=== PATIENT | female | born 1990 | race American Indian/Alaskan Native ===

== ENCOUNTER 2018-10-22 10:34 | Emergency (ER) | payer SELFPAY ==
[2018-10-22 10:42] VITALS: TEMP 98.1
--- NOTE | 2018-10-22 11:11 | C.PDOC ---
History Of Present Illness 28 y/o female A2 presents to the ER c/o right sided back pain that now radiates to the abdomen for 4 days. Pt reports that in the beginning only her back was hurting, but now her abdomen is hurting too which prompted her to visit the ER. She states that walking exacerbates the pain, rating the pain a 7/10. Pt denies dysuria, nausea, vomiting and vaginal discharge. Time Seen by Provider: 10/22/18 10:42 Chief Complaint (Nursing): Back Pain History Per: Patient History/Exam Limitations: no limitations Onset/Duration Of Symptoms: Days (x4) Current Symptoms Are (Timing): Still Present Quality Of Discomfort: "Pain" Past Medical History Reviewed: Historical Data, Nursing Documentation, Vital Signs Vital Signs: Last Vital Signs Temp 98.1 F 10/22/18 10:39 Pulse 72 10/22/18 10:39 Resp 18 10/22/18 10:39 BP 111/70 10/22/18 10:39 Pulse Ox 100 10/22/18 10:39 - Medical History PMH: Kidney Stones (left side), Chronic Kidney Disease Family History: States: No Known Family Hx - Social History Hx Alcohol Use: No Hx Substance Use: No - Immunization History Hx Tetanus Toxoid Vaccination: Yes Hx Influenza Vaccination: Yes Hx Pneumococcal Vaccination: Yes Review Of Systems Constitutional: Negative for: Fever, Chills Cardiovascular: Negative for: Chest Pain Respiratory: Negative for: Shortness of Breath Gastrointestinal: Positive for: Abdominal Pain (right side; radiating from back pain ). Negative for: Nausea, Vomiting Genitourinary: Negative for: Dysuria, Vaginal Discharge Musculoskeletal: Positive for: Back Pain (right side ) Skin: Negative for: Rash Neurological: Negative for: Headache, Dizziness Physical Exam - Physical Exam Appears: Non-toxic, No Acute Distress Skin: Warm, Dry Head: Atraumatic, Normacephalic Eye(s): bilateral: Normal Inspection Ear(s): Bilateral: Normal Nose: Normal Oral Mucosa: Moist Tongue: Normal Appearing Neck: Normal ROM, Supple Chest: Symmetrical Cardiovascular: Rhythm Regular Respiratory: Normal Breath Sounds, No Accessory Muscle Use Gastrointestinal/Abdominal: Soft, Tenderness (Right suprapubic ), No Distention, No Guarding, No Rebound Back: No CVA Tenderness, No Vertebral Tenderness, Paraspinal Tenderness Extremity: Normal ROM (x4) Extremity: Bilateral: Atraumatic Neurological/Psych: Oriented x3, Normal Speech, Normal Cognition, Normal Motor, Normal Sensation ED Course And Treatment - Laboratory Results Result Diagrams: 10/22/18 11:41 10/22/18 11:41 O2 Sat by Pulse Oximetry: 100 (RA) Pulse Ox Interpretation: Normal - CT Scan/US abdomen Other Rad Studies (CT/US): Read By Radiologist, Radiology Report Reviewed CT/US Interpretation: Accession No. : [id number]. Patient Name / ID : ALEXANDRIA CHRISTIE / [id number]. Exam Date : 10/22/2018 12:58:23 ( Approved ). Study Comment : Sex / Age : F / 28Y. Creator : Rah Berry MD. Dictator : Rah Berry MD. Boat Tender : Petroleum Inspector Supervisor : Rah Berry MD. Approver2 : Report Date : 10/22/2018 14:14:10. My Comment : . Right upper quadrant abdominal ultrasound. HISTORY: Right upper quadrant abdominal pain. COMPARISON: None available. Technique: Real-time sonography was performed through the right upper quadrant of the abdomen. Findings: Liver: 14.7 centimeters in length. Normal echogenicity. Gallbladder: No calculi or sludge. Normal wall thickness of 1.8 millimeters. Negative sonographic Johnson's sign. Common bile duct measures 3.7 millimeters. Pancreas: Visualized portions preserved. Limited visualization of the pancreatic tail. Visualized aorta and IVC are grossly preserved. Right kidney: 12.2 x 4.4 x 4.7 centimeters. No calculi or hydronephrosis. Mild fullness of the right renal collecting system. Left Kidney: 10.9 x 5.9 x 5.3 centimeters. No calculi or hydronephrosis. Mild fullness of the left renal collecting system. Impression: Unremarkable sonographic evaluation of the right upper xiomara drant of the abdomen. pelvis Other Rad Studies (CT/US): Read By Radiologist, Radiology Report Reviewed CT/US Interpretation: Accession No. : [id number]. Patient Name / ID : ALEXANDRIA CHRISTIE / [id number]. Exam Date : 10/22/2018 12:33:02 ( Approved ). Study Comment : Sex / Age : F / 28Y. Creator : Rah Berry MD. Dictator : Rah Berry MD. Boat Tender : Petroleum Inspector Supervisor : Rah Berry MD. Approver2 : Report Date : 10/22/2018 14:09:22. My Comment : . Pelvic ultrasound. HISTORY: . Suprapubic pain. COMPARISON: None available. Technique: Real-time sonography was performed through the pelvis utilizing transabdominal and transvaginal techniques. Findings: Uterus: 11.3 x 4.7 x 6.7 centimeters. Heterogeneous echotexture. Anteverted. Cervix measures 3.3 centimeters. Intrauterine gestational sac measuring 1.29 centimeters corresponding to a gestational age of 5 weeks and 3 days. Yolk sac measures 2.7 millimeters. [place]-rump length measures 2.2 millimeters corresponding to a gestational age of 5 weeks and 5 days. heart rate of 103 beats per minute. No free fluid in the pelvic cul-de-sac. Right ovary: 3.6 x 3.2 x 4.0 centimeters. Normal flow. Heterogeneous cyst possibly corpus luteal cyst measuring 2.5 x 1.9 x 2.5 centimeters. Left ovary: 2.4 x 2.0 x 3.6 centimeters. Normal flow. Prominent blood vessels noted within the region of the bilateral adnexa. Impression: Intrauterine co rresponding to a gestational age of 5 weeks and 5 days by crown-rump length of 2.2 millimeters. heart rate of 103 beats per minute. Suggestion of a right ovarian corpus luteal cyst measuring 2.5 centimeters. Limited 1st trimester ultrasound for viability purposes only. Continued interval followup with serial ultrasound, serial HCG levels, and gynecological consultation would be helpful if clinically indicated. Medical Decision Making Medical Decision Making: plans: -- Labs- Anemic- patient states that she is on iron --UA- positive for UA -- US Abdomen:Unremarkable sonographic evaluation of the right upper quadrant of the abdomen. -- US pelvis: Intrauterine corresponding to a gestational age of 5 weeks and 5 days by crown-rump length of 2.2 millimeters. heart rate of 103 beats per minute. Suggestion of a right ovarian corpus luteal cyst measuring 2.5 centimeters. Limited 1st trimester ultrasound for viability purposes only. Continued interval followup with serial ultrasound, serial HCG levels, and gynecological c onsultation would be helpful if clinically indicated. D/w patient results and will treat with Macrobid patient advised to continue Macrobid twice a day for 5 days Rest and hydration Tylenol as needed for pain Follow up with PMD in 1-2 days Patient verbalizes understanding and is in agreement with plan. Patient is stable for discharge. Disposition Counseled Patient/Family Regarding: Studies Performed, Diagnosis, Need For Followup, Rx Given - Disposition Referrals: Murali Keller MD [Medical Doctor] - Disposition: HOME/ ROUTINE Disposition Time: 14:20 Condition: STABLE Additional Instructions: Continue antibiotics twice a day for 5 days Rest and hydration Tylenol as needed for pain Follow up with PMD in 1-2 days Return to the ED if symptoms worsen Prescriptions: Nitrofurantoin Macrocrystals [Macrobid] 100 mg PO BID #9 cap Instructions: Urinary Tract Infection, Adult (DC) Forms: [employer] (Maori) - Clinical Impression Clinical Impression: Low back pain, UTI (urinary tract infection) - PA / PARAFFINER / Resident Statement / has reviewed & agrees with the documentation as recorded. - Scribe Statement The provider has reviewed the documentation as recorded by the Anabel Del Toro Do All medical record entries made by the Scribe were at my direction and personally dictated by me. I have reviewed the chart and agree that the record accurately reflects my personal performance of the history, physical exam, medical decision making, and the department course for this patient. I have also personally directed, reviewed, and agree with the discharge instructions and disposition.
[2018-10-22 11:27] LABS: SQUAMOUS EPITHIAL 9 /hpf (0-5); URINE BACTERIA RARE (<OCC); URINE BILIRUBIN NEGATIVE (NEGATIVE); URINE CLARITY Hazy (Clear); URINE COLOR Yellow (YELLOW); URINE GLUCOSE (UA) NORMAL (Normal); URINE PROTEIN NEGATIVE (NEGATIVE); URINE UROBILINOGEN NORMAL mg/dL (0.2-1.0)
[2018-10-22 11:36] LABS: URINE BLOOD 2+ (NEGATIVE); URINE LEUKOCYTE ESTERASE 1+ Leu/uL (Negative)
[2018-10-22 11:46] LABS: BASO % 0.6 % (0.0-2.0); EOS % 1.2 % (0.0-4.0); HEMOGLOBIN 9.1 g/dL (11.0-16.0); LYMPH # 1.8 K/uL (1.0-4.3); LYMPH % 52.7 % (20.0-40.0); MEAN CELL VOLUME 77.4 fL (81.0-99.0); MEAN CORPUSCULAR HEMOGLOBIN 24.8 pg (27.0-31.0); MEAN CORPUSCULAR HGB CONC 32.1 g/dL (33.0-37.0); MEAN PLATELET VOLUME 8.3 fL (7.2-11.7); MONO # 0.3 K/uL (0.0-0.8); MONO % 8.9 % (0.0-10.0); NEUT # 1.3 K/uL (1.8-7.0); NEUT % 36.6 % (50.0-75.0); RBC 3.66 Mil/uL (3.80-5.20); RED CELL DISTRIBUTION WIDTH 20.7 % (11.5-14.5); WHITE BLOOD COUNT 3.5 K/uL (4.8-10.8)
[2018-10-22 11:59] LABS: ALB/GLOB RATIO 1.3 (1.0-2.1); ALT/SGPT 46 U/L (9-52); AST/SGOT 47 U/L (14-36); BLOOD UREA NITROGEN 10 mg/dL (7-17); CALCIUM 9.4 mg/dl (8.6-10.4); GFR NON-AFRICAN AMERICAN > 60
--- NOTE | 2018-10-22 14:12 | US ---
Pelvic ultrasound HISTORY: . Suprapubic pain. COMPARISON: None available. Technique: Real-time sonography was performed through the pelvis utilizing transabdominal and transvaginal techniques. Findings: Uterus: 11.3 x 4.7 x 6.7 centimeters. Heterogeneous echotexture. Anteverted. Cervix measures 3.3 centimeters. Intrauterine gestational sac measuring 1.29 centimeters corresponding to a gestational age of 5 weeks and 3 days. Yolk sac measures 2.7 millimeters. [place]-rump length measures 2.2 millimeters corresponding to a gestational age of 5 weeks and 5 days. heart rate of 103 beats per minute. No free fluid in the pelvic cul-de-sac. Right ovary: 3.6 x 3.2 x 4.0 centimeters. Normal flow. Heterogeneous cyst possibly corpus luteal cyst measuring 2.5 x 1.9 x 2.5 centimeters. Left ovary: 2.4 x 2.0 x 3.6 centimeters. Normal flow. Prominent blood vessels noted within the region of the bilateral adnexa. Impression: Intrauterine corresponding to a gestational age of 5 weeks and 5 days by crown-rump length of 2.2 millimeters. heart rate of 103 beats per minute. Suggestion of a right ovarian corpus luteal cyst measuring 2.5 centimeters. Limited 1st trimester ultrasound for viability purposes only. Continued interval followup with serial ultrasound, serial HCG levels, and gynecological consultation would be helpful if clinically indicated.
--- NOTE | 2018-10-22 14:17 | US ---
Right upper quadrant abdominal ultrasound HISTORY: Right upper quadrant abdominal pain. COMPARISON: None available. Technique: Real-time sonography was performed through the right upper quadrant of the abdomen. Findings: Liver: 14.7 centimeters in length. Normal echogenicity. Gallbladder: No calculi or sludge. Normal wall thickness of 1.8 millimeters. Negative sonographic Johnson's sign. Common bile duct measures 3.7 millimeters. Pancreas: Visualized portions preserved. Limited visualization of the pancreatic tail. Visualized aorta and IVC are grossly preserved. Right kidney: 12.2 x 4.4 x 4.7 centimeters. No calculi or hydronephrosis. Mild fullness of the right renal collecting system. Left Kidney: 10.9 x 5.9 x 5.3 centimeters. No calculi or hydronephrosis. Mild fullness of the left renal collecting system. Impression: Unremarkable sonographic evaluation of the right upper quadrant of the abdomen.
[2018-10-22 14:46] VITALS: BP 122/85; PULSE 64; RESP 16
[2018-10-23 22:33] VITALS: O2SAT 100
== END 2018-10-22 14:45 | disposition home or self-care (01) ==
LOC: C.ER 10:34
DX: O26.891 Other specified pregnancy related conditions, first trimester (principal); O23.41 Unspecified infection of urinary tract in pregnancy, first trimester; M54.5 Low back pain; Z3A.01 Less than 8 weeks gestation of pregnancy